=== PATIENT | female | born 1935 | race African-American/Black ===

== ENCOUNTER 2018-03-19 17:10 | Emergency (ER) | payer BC, MEDICARE ==
[2018-03-19 17:31] VITALS: BP 151/83
--- NOTE | 2018-03-19 17:44 | ER Document Report ---
ED Cardiac - General Chief Complaint: Chest Pain Stated Complaint: CHEST TIGHTNESS, DIFFICULTY BREATHING Time Seen by Provider: 03/19/18 17:21 Notes: This is an 82-year-old pleasant -[place] female who presents to the emergency department today for evaluation of fullness in her chest. Patient states that it has been present for quite some time. Eating seems to make it worse. Thinks that she may have a hiatal hernia but not real sure. Denies any significant chest pain. Denies any other major issues at this time. No prior history of PE. No prior history of IN. No cardiac history to speak of. TRAVEL OUTSIDE OF THE [place] IN LAST 30 DAYS: No - Related Data Allergies/Adverse Reactions: No Known Allergies Allergy (Unverified 03/19/18 17:12) Past Medical History - General Information source: Patient - Social History Smoking Status: Never Smoker Chew tobacco use (# tins/day): No Frequency of alcohol use: None Drug Abuse: None Family History: Reviewed & Not Pertinent Patient has suicidal ideation: No Patient has homicidal ideation: No Renal/ Medical History: Denies: Hx Peritoneal Dialysis Review of Systems - Review of Systems Notes: Constitutional: denies: Chills, Diaphoresis, Fever, Malaise, Weakness EENT: denies: Eye discharge, Blurred vision, Tearing, Double vision, Nose congestion, Nose discharge, Throat swelling, Mouth pain Cardiovascular: denies: Palpitations, Heart racing, Orthopnea, Dyspnea, Chest pain. Describes a fullness feeling in the chest at times. Respiratory: denies: Cough, Hurts to breathe, Wheezing, Shortness of breath Gastrointestinal: denies: Abdominal pain, Diarrhea, Nausea, Vomiting, Black stools, bright red blood in stool Genitourinary: denies: Burning, Dysuria, Discharge, Frequency, Flank pain, Hematuria Musculoskeletal: denies: Joint pain, Joint swelling, Muscle pain, Muscle stiffness, back pain Hematologic/Lymphatic: denies: Anemia, Easy bleeding, Easy bruising, Blood clots Neurological/Psychological: denies: Confusion, Dementia, Depression, Loss of consciousness Skin: No lesions, no masses, no skin breakdown, no abscesses Physical Exam - Vital signs Vitals: Temp Pulse Resp BP Pulse Ox 97.5 F 78 18 151/83 H 98 03/19/18 17:30 03/19/18 17:30 03/19/18 17:30 03/19/18 17:30 03/19/18 17:30 Interpretation: Normal - General General appearance: Appears well, Alert - HEENT Head: Normocephalic, Atraumatic Eyes: Normal Pupils: PERRL - Respiratory Respiratory status: No respiratory distress Chest status: Nontender Breath sounds: Normal Chest palpation: Normal - Cardiovascular Rhythm: Regular Heart sounds: Normal auscultation Murmur: No Notes: She does have an occasional PVC. - Abdominal Inspection: Normal Distension: No distension Bowel sounds: Normal Tenderness: Nontender Organomegaly: No organomegaly - Back Back: Normal, Nontender - Extremities General upper extremity: Normal inspection, Nontender, Normal color, Normal ROM , Normal temperature General lower extremity: Normal inspection, Nontender, Normal color, Normal ROM , Normal temperature, Normal weight bearing. No: Radha's sign - Neurological Neuro grossly intact: Yes Cognition: Normal Orientation: AAOx4 Rose Coma Scale Eye Opening: Spontaneous Rose Coma Scale Verbal: Oriented Rose Coma Scale Motor: Obeys Commands Rose Coma Scale Total: 15 Speech: Normal Motor strength normal: LUE, RUE, LLE, RLE Sensory: Normal - Psychological Associated symptoms: Normal affect, Normal mood - Skin Skin Temperature: Warm Skin Moisture: Dry Skin Color: Normal Course - Re-evaluation Re-evalutation: 03/19/18 21:01 After explaining the workup the patient decided that she would rather not be here. I have advised her against this as I cannot definitively say what is wrong with her. She states that she would rather go see her regular doctor than to have a workup done today in the ER. I did review her EKG and it did not show any significant signs of ischemia. Patient was asked to sign out AGAINST MEDICAL ADVICE at this time but encouraged to return if symptoms get worse. - Vital Signs Vital signs: Temp Pulse Resp BP Pulse Ox 97.5 F 78 18 151/83 H 98 03/19/18 17:30 03/19/18 17:30 03/19/18 17:30 03/19/18 17:30 03/19/18 17:30 - EKG Interpretation by Me EKG shows normal: Sinus rhythm, [place], Intervals, QRS Complexes, ST-T Waves Discharge - Discharge Clinical Impression: Discomfort in chest Condition: Good Disposition: HOME, SELF-CARE Instructions: Chest Pain of Unclear Cause ([facility]) Additional Instructions: Your EKG was fairly unremarkable. We wanted to do more testing but you decided that you would rather go home. This is AGAINST MEDICAL ADVICE. Regardless, if you change your mind and your symptoms get worse please return immediately to the emergency department for repeat evaluation. Please follow-up with your regular doctor soon as possible for repeat evaluation. Referrals: LALI RAYA MD [Primary Care Provider] - Follow up in 3-5 days
--- NOTE | 2018-03-20 10:42 | EKG REPORT ---
SEVERITY:- OTHERWISE NORMAL ECG - SINUS RHYTHM ATRIAL PREMATURE COMPLEX LVH WITH SECONDARY ST-T CHANGES : Confirmed by: Ortega Hendrix 20-Mar-2018 10:41:24
== END 2018-03-19 17:47 | disposition left against medical advice (07) ==
LOC: ER 17:10
DX: R07.9 Chest pain, unspecified (principal); R06.00 Dyspnea, unspecified
CPT/HCPCS: 93005; 93010; 99285